=== PATIENT | male | born 1970 | race Caucasian/White ===

== ENCOUNTER 2019-05-04 23:17 | Emergency (ER) | payer OTHER ==
[~2019-05-04] VITALS: Ht 182.9 cm; Wt 90.7 kg
[2019-05-04] MEDS ORDERED: LOSARTAN POTASS25 MG PO (23:30)
[2019-05-04] MEDS ORDERED: METOPROLOL SUCC25 MG PO (23:30)
[2019-05-04] MEDS ORDERED: ASPIR-LOW81 MG PO (23:31)
--- NOTE | 2019-05-06 11:03 | EKG ---
[facility] [address], [place] [address] Signed Sinus rhythm with 1st degree AV block Otherwise normal ECG No previous ECGs available Confirmed by MARIN ENRIQUEZ DO ([id number]) on 05/06/2019 11:03:13 AM Electronically Signed By: MARIN ENRIQUEZ DO 05/06/19 1103 PATIENT NAME: OBEY ESCUDERO Electrocardiogram DATE OF : 68 PHYSICIAN: MARIN ENRIQUEZ DO REPORT #: [id number] REPORT IS CONFIDENTIAL AND NOT TO BE RELEASED WITHOUT AUTHORIZATION
== END 2019-05-05 01:45 | disposition home or self-care (01) ==
LOC: ED 23:17 → EDBD 23:17 → ED 05-05 01:45
DX: R55 Syncope and collapse (principal); I10 Essential (primary) hypertension; Z79.899 Other long term (current) drug therapy; Z79.82 Long term (current) use of aspirin
CPT/HCPCS: 80053; 83735; 84484; 85025; 93005; 93010; 99285-25; J7030